=== PATIENT | male | born 1960 | race Caucasian/White ===

== ENCOUNTER 2021-11-16 03:36 | Emergency (ER) | payer OTHER ==
[~2021-11-16] VITALS: Ht 188 cm; Wt 145.6 kg
[2021-11-16] MEDS ORDERED: FLOMAX0.4 MG PO (04:03)
[2021-11-16] MEDS ORDERED: HYDRALAZINE HCL25 MG PO (04:03)
[2021-11-16] MEDS ORDERED: LISINOPRIL20 MG PO (04:03)
[2021-11-16] MEDS ORDERED: METFORMIN HCL500 MG PO (04:04)
[2021-11-16] MEDS ORDERED: ASPIRIN81 MG PO (04:05)
--- NOTE | 2021-11-17 17:41 | EKG ---
[facility] [address] [place], [place] [address] Signed Normal sinus rhythm Normal ECG When compared with ECG of 16-NOV-2021 03:46, (Unconfirmed) No significant change was found Confirmed by PATTI QUINN DO ([id number]) on 11/17/2021 5:41:09 PM Electronically Signed By: PATTI QUINN DO 11/17/211740 PATIENT NAME: EVERARDO BAKER Electrocardiogram DATE OF : 58 PHYSICIAN: PATTI QUINN DO REPORT #: [id number] REPORT IS CONFIDENTIAL AND NOT TO BE RELEASED WITHOUT AUTHORIZATION
--- NOTE | 2021-11-17 17:41 | EKG ---
[facility] [address] [facility] [place], [place] [address] Signed Sinus tachycardia Otherwise normal ECG No previous ECGs available Confirmed by PATTI QUINN DO ([id number]) on 11/17/2021 5:41:01 PM Electronically Signed By: PATTI QUINN DO 11/17/21 1741 PATIENT NAME: SAMUELEVERARDO TABITHA Electrocardiogram DATE OF : 58 PHYSICIAN: PATTI QUINN DO REPORT #: [id number] REPORT IS CONFIDENTIAL AND NOT TO BE RELEASED WITHOUT AUTHORIZATION
== END 2021-11-16 07:00 | disposition home or self-care (01) ==
LOC: ED 03:36
DX: R07.89 Other chest pain (principal); E11.9 Type 2 diabetes mellitus without complications; I10 Essential (primary) hypertension; Z79.899 Other long term (current) drug therapy; Z79.84 Long term (current) use of oral hypoglycemic drugs; Z79.82 Long term (current) use of aspirin
CPT/HCPCS: 71045; 80053; 83735; 84484; 85025; 85379; 85610; 85730; 93005; 93010; 96374; 99285-25; J2405; J7030